=== PATIENT | male | born 1990 | race African-American/Black ===

== ENCOUNTER 2018-02-27 20:17 | Emergency (ER) | payer SELFPAY ==
[~2018-02-27] VITALS: Ht 175.3 cm; Wt 154.2 kg
[2018-02-27 20:33] VITALS: BP 186/120
[2018-02-27] MEDS ORDERED: ACETAMINOPHEN ES 500 MG TABLET ONE (22:50)
[2018-02-27] MEDS ORDERED: ACETAMINOPHEN 325 MG TABLET PO ONE (23:00)
== END 2018-02-27 22:56 | disposition home or self-care (01) ==
LOC: ER 20:19
DX: H60.8X1 Other otitis externa, right ear (principal)
CPT/HCPCS: A4606; Z7610